=== PATIENT | female | born 1985 | race Caucasian/White ===

== ENCOUNTER 2022-10-04 19:08 | Emergency (ER) | payer BC ==
[~2022-10-04] VITALS: Ht 154.9 cm; Wt 63.5 kg
[2022-10-04 19:33] VITALS: BP_SYST 103
--- NOTE | 2022-10-04 19:55 | NUR ---
Pt brought by self, A&Ox4, pt presents to ER with vaginal spotting x 1 week, pt state she is 7 weeks , skin pink and warm, cap refill <3, VSS
[2022-10-04 20:18] LABS: BASOPHILS # (AUTO) 0.1 K/uL (0.0-0.2); BASOPHILS % (AUTO) 0.8 % (0.0-2.0); EOSINOPHILS # (AUTO) 0.1 K/uL (0.0-0.4); EOSINOPHILS % (AUTO) 0.7 % (0.0-4.0); HEMATOCRIT 34.9 % (36-48); HEMOGLOBIN 11.4 g/dL (12.0-16.0); LYMPHOCYTES # (AUTO) 2.6 K/uL (1.0-5.5); LYMPHOCYTES % (AUTO) 20.7 % (20.5-51.5); MEAN CORPUSCULAR HEMOGLOBIN 24 pg (27-31); MEAN CORPUSCULAR HGB CONC 33 % (32-36); MEAN CORPUSCULAR VOLUME 75 fL (79.0-98.0); MONOCYTES # (AUTO) 0.7 K/uL (0.0-1.0); MONOCYTES % (AUTO) 5.6 % (1.7-9.3); NEUTROPHILS # (AUTO) 9.2 K/uL (1.8-7.7); NEUTROPHILS % (AUTO) 72.2 % (40.0-70.0); PLATELET COUNT (AUTO) 365 K/uL (130-430); RED BLOOD CELL COUNT(AUTO) 4.68 MIL/uL (4.2-6.2); RED CELL DISTRIBUTION WIDTH 16.3 % (9.0-15.0); WHITE BLOOD COUNT (AUTO) 12.7 K/uL (4.8-10.8)
--- NOTE | 2022-10-04 21:19 | NUR ---
Report given to Merrill STREETER
--- NOTE | 2022-10-05 02:00 | NUR ---
Patient to ER bed 8 to gown for evaluation. Side rails up.
--- NOTE | 2022-10-05 02:45 | NUR ---
SHEY Yan at bedside examining patient.
--- NOTE | 2022-10-05 03:29 | NUR ---
Patient given written and verbal discharge instructions and verbalizes understanding. ER MD discussed with patient the results and treatment provided. Patient in stable condition. ID arm band removed. no Rx of given. Patient educated on pain management and to follow up with PMD. Pain Scale 0/10. Opportunity for questions provided and answered. Medication side effect fact sheet provided.
[2022-10-05 03:30] VITALS: BP_SYST 110
[2022-10-05 03:37] LABS: BILIRUBIN,URINE NEGATIVE (NEGATIVE); BLOOD, URINE 3+ (NEGATIVE); COLOR,URINE YELLOW (YELLOW); GLUCOSE,URINE NEGATIVE (NEGATIVE); KETONES,URINE TRACE (NEGATIVE); LEUKOCYTE ESTERASE ,URINE NEGATIVE (NEGATIVE); NITRITE, URINE NEGATIVE (NEGATIVE); PROTEIN URINE NEGATIVE (NEGATIVE); UROBILINOGEN,URINE 0.2 (0.2-1.0)
[2022-10-05 03:38] LABS: CLARITY/URINE HAZY (CLEAR)
[2022-10-05 03:42] LABS: BACTERIA,URINE RARE /HPF (None Seen); RBC,URINE 0-3 /HPF (0-3); WBC,URINE NONE SEEN /HPF (0-3)
[2022-10-05 03:44] LABS: MUCUS,URINE None Seen /LPF (None Seen)
== END 2022-10-05 03:28 | disposition home or self-care (01) ==
LOC: SED 19:08
DX: O20.0 Threatened abortion (principal); Z3A.01 Less than 8 weeks gestation of pregnancy
CPT/HCPCS: 36415; 76856-TC; 81000; 81025; 84702; 85025; 86900; 86901; 99284